=== PATIENT | male | born 1960 | race Caucasian/White ===

== ENCOUNTER 2018-01-13 08:59 | Emergency (ER) | payer MEDICAID, OTHER ==
[~2018-01-13] VITALS: Ht 175.3 cm; Wt 72.1 kg
[2018-01-13 09:01] VITALS: BP 104/68
== END 2018-01-13 09:30 | disposition home or self-care (01) ==
LOC: ED 09:24
DX: M79.672 Pain in left foot (principal); M77.9 Enthesopathy, unspecified; Z88.0 Allergy status to penicillin
CPT/HCPCS: 99281